=== PATIENT | female | born 1995 ===

== ENCOUNTER 2018-08-25 13:54 | Emergency (ER) | payer OTHER ==
[2018-08-25 14:22] VITALS: BP 122/75; PULSE 84; RESP 20; TEMP 98.9; O2SAT 100
[2018-08-25] MEDS ORDERED: Sodium Chloride 0.9% 1,000 ML IV ONE (15:10)
--- NOTE | 2018-08-25 15:15 | C.PDOC ---
History Of Present Illness 23-year-old female, with history of cholecystectomy and two ovarian cysts, presents to the ED for evaluation of vomiting and abdominal pain occasionally radiating to back which began today. Patient states her last menstrual period wa s 07/24 and she had an at-home test which was positive. Patient denies diarrhea, dysuria, vaginal bleeding/diarrhea. Patient is and had one stillbirth. Patient is not following up with an COMMUNITY SERVICES COORDINATOR for her current . Time Seen by Provider: 08/25/18 15:01 Chief Complaint (Nursing): Abdominal Pain History Per: Patient History/Exam Limitations: no limitations Onset/Duration Of Symptoms: Hrs Current Symptoms Are (Timing): Still Present Location Of Pain/Discomfort: Other (lower abdomen ) Radiation Of Pain To:: Back Quality Of Discomfort: "Pain" Associated Symptoms: denies: Diarrhea, Urinary Symptoms Last Menstral Period: 07/24/2018 : 4 Para: 2 Miscarriage: 1 (stillbirth ) Past Medical History Reviewed: Historical Data, Nursing Documentation, Vital Signs Vital Signs: Last Vital Signs Temp 98.9 F 08/25/18 14:17 Pulse 84 08/25/18 14:17 Resp 20 08/25/18 14:17 BP 122/75 08/25/18 14:17 Pulse Ox 100 08/25/18 14:17 - Medical History PMH: No Chronic Diseases Surgical History: Cholecystectomy Family History: States: Unknown Family Hx - Social History Hx Alcohol Use: No Hx Substance Use: No - Immunization History Hx Tetanus Toxoid Vaccination: Yes Hx Influenza Vaccination: No Hx Pneumococcal Vaccination: No Review Of Systems Gastrointestinal: Positive for: Abdominal Pain (lower ). Negative for: Diarrhea Genitourinary: Negative for: Dysuria, Vaginal Discharge, Vaginal Bleeding Physical Exam - Physical Exam Appears: Non-toxic, No Acute Distress Skin: Normal Color, Warm, Dry Head: Atraumatic, Normacephalic Eye(s): bilateral: Normal Inspection Oral Mucosa: Moist Neck: Supple Chest: Symmetrical, No Deformity, No Tenderness Cardiovascular: Rhythm Regular, No Murmur Respiratory: Normal Breath Sounds, No Rales, No Rhonchi, No Wheezing Gastrointestinal/Abdominal: Bowel Sounds (positive ), Soft, Tenderness (lower abdomen ), No Guarding, No Rebound Back: CVA Tenderness (bilaterally ) Extremity: Normal ROM, Capillary Refill (less than 2 seconds ) Neurological/Psych: Oriented x3, Normal Speech, Normal Cognition ED Course And Treatment - Laboratory Results Result Diagrams: 08/25/18 15:40 08/25/18 15:40 O2 Sat by Pulse Oximetry: 100 (on RA) Medical Decision Making Medical Decision Making: Assessment: abdominal pain and Plan: * bloodwork * urinalysis * transvaginal ultrasound * Pepcid IVP * Tylenol PO * Zofran IVP * IV Fluids * reassess and disposition Progress: Bloodwork, urinalysis, Transvaginal US ordered and reviewed. Pepvid IVP, Tylenol PO, Zofran IVP and IV Fluids given. Disposition - Disposition Disposition: HOME/ ROUTINE Disposition Time: 18:04 Condition: STABLE Additional Instructions: follow up with your ob doctor within 2 days call to make an appointment take tylenol as needed for pain take medication as prescribed for nausea your ultrasound doesn't demonstrate a at this time your hormone count is low and need repeating in 2-3 days return to ER if symptoms worsens or progress Prescriptions: Metoclopramide HCl [Reglan] 10 mg PO BID PRN #12 tablet PRN Reason: Nausea/Vomiting Instructions: Morning Sickness (DC), Tests, Acute Abdomen (Belly Pain), Adult (DC) Forms: [facility] (Pashto), General Discharge Instructions - Clinical Impression Clinical Impression: Abdominal pain, Nausea, - Scribe Statement The provider has reviewed the documentation as recorded by the Scribe (Sadie Romero) Provider Attestation: All medical record entries made by the Scribe were at my direction and personally dictated by me. I have reviewed the chart and agree that the record accurately reflects my personal performance of the history, physical exam, medical decision making, and the department course for this patient. I have also personally directed, reviewed, and agree with the discharge instructions and disposition.
[2018-08-25 15:50] LABS: BASO % 0.2 % (0.0-2.0); EOS % 0.1 % (0.0-4.0); HEMOGLOBIN 13.5 g/dL (11.0-16.0); LYMPH # 1.2 K/uL (1.0-4.3); LYMPH % 14.6 % (20.0-40.0); MEAN CELL VOLUME 87.3 fL (81.0-99.0); MEAN CORPUSCULAR HEMOGLOBIN 29.2 pg (27.0-31.0); MEAN CORPUSCULAR HGB CONC 33.4 g/dL (33.0-37.0); MEAN PLATELET VOLUME 6.9 fL (7.2-11.7); MONO # 0.4 K/uL (0.0-0.8); MONO % 5.2 % (0.0-10.0); NEUT # 6.7 K/uL (1.8-7.0); NEUT % 79.9 % (50.0-75.0); RBC 4.62 Mil/uL (3.80-5.20); RED CELL DISTRIBUTION WIDTH 14.5 % (11.5-14.5); WHITE BLOOD COUNT 8.4 K/uL (4.8-10.8)
[2018-08-25 15:57] LABS: SQUAMOUS EPITHIAL 4 /hpf (0-5); URINE BILIRUBIN NEGATIVE (NEGATIVE); URINE BLOOD NEGATIVE (NEGATIVE); URINE CLARITY Hazy (Clear); URINE COLOR Yellow (YELLOW); URINE GLUCOSE (UA) NORMAL (Normal); URINE LEUKOCYTE ESTERASE NEG Leu/uL (Negative); URINE PROTEIN NEGATIVE (NEGATIVE); URINE UROBILINOGEN NORMAL mg/dL (0.2-1.0)
[2018-08-25 16:02] LABS: ALB/GLOB RATIO 1.6 (1.0-2.1); ALBUMIN 4.6 g/dL (3.5-5.0); ALT/SGPT 27 U/L (9-52); AST/SGOT 24 U/L (14-36); BLOOD UREA NITROGEN 11 mg/dL (7-17); CALCIUM 8.8 mg/dl (8.6-10.4); GFR NON-AFRICAN AMERICAN > 60; LIPASE 88 U/L (23-300)
--- NOTE | 2018-08-25 17:41 | US ---
Date of service: 08/25/2018 HISTORY: abd. pain COMPARISON: None available. TECHNIQUE: Transabdominal and transvaginal FINDINGS: UTERUS: Measures 8.9 x 4.9 x 6.2 cm. Normal in size and appearance. No fibroid or other mass lesion seen. ENDOMETRIUM: Measures 20 mm in diameter. Mildly thickened. CERVIX: No cervical abnormality identified. RIGHT OVARY: Measures 3.7 x 1.8 x 3.4 cm. No solid mass. Normal flow. LEFT OVARY: Measures 3.2 x 1.9 x 3.0 cm. No solid mass. Normal flow. FREE FLUID: No significant free fluid noted. OTHER FINDINGS: None. IMPRESSION: Mildly thickened endometrial echo complex. No evidence of intrauterine gestation. Cannot rule out ectopic in the absence of an intrauterine gestation. Please correlate with serial beta HCG evaluation.
== END 2018-08-25 18:23 | disposition home or self-care (01) ==
LOC: C.ER 13:54
DX: O26.899 Other specified pregnancy related conditions, unspecified trimester (principal); R10.9 Unspecified abdominal pain
CPT/HCPCS: 76830; 76856; 80053; 81001; 83690; 84702; 85025; 86850; 86900; 87086; 87181; 87491; 87591; 96361; 96374; 96375; 99285; J2405; J7030

== ENCOUNTER 2018-08-27 14:36 | Emergency (ER) | payer OTHER ==
[2018-08-27 14:47] VITALS: BMI 24.5
[2018-08-27] MEDS ORDERED: Sodium Chloride 0.9% 1,000 ML IV STA (16:23)
--- NOTE | 2018-08-27 16:29 | C.PDOC ---
History Of Present Illness 23 year old female, , presents to ED with complaints of abdominal pain earlier today, associated with nausea. Patient states she visited ER for similar but worse symptoms 2 days ago. Ultrasound was done but showed nothing. Otherwise patient denies any vomiting, diarrhea, fever, vaginal bleeding, or vaginal discharge. LMP was on 07/24/18. Time Seen by Provider: 08/27/18 16:05 Chief Complaint (Nursing): Abdominal Pain History Per: Patient History/Exam Limitations: no limitations Onset/Duration Of Symptoms: Hrs Current Symptoms Are (Timing): Still Present Past Medical History Reviewed: Historical Data, Nursing Documentation, Vital Signs Vital Signs: Last Vital Signs Temp 97.6 F 08/27/18 14:47 Pulse 86 08/27/18 14:47 Resp 20 08/27/18 14:47 BP 104/69 08/27/18 14:47 Pulse Ox 100 08/27/18 14:47 Surgical History: Cholecystectomy Family History: States: No Known Family Hx - Social History Hx Alcohol Use: No Hx Substance Use: No - Immunization History Hx Tetanus Toxoid Vaccination: Yes Hx Influenza Vaccination: No Hx Pneumococcal Vaccination: No Review Of Systems Except As Marked, All Systems Reviewed And Found Negative. Constitutional: Negative for: Fever Gastrointestinal: Positive for: Nausea, Abdominal Pain. Negative for: Vomiting, Diarrhea Genitourinary: Negative for: Vaginal Discharge, Vaginal Bleeding Physical Exam - Physical Exam Additional Physical Exam Comments: Constitutional: No acute distress. Head: Normocephalic. Atraumatic. Eyes: PERRL. ENT: Moist mucous membranes. Neck: Supple. Cardiovascular: Regular rate. Radial pulse 2+ bilaterally. Chest: No tenderness. Respiratory: Clear to auscultation bilaterally. GI: Soft. Nontender. Nondistended. No tenderness at McBurney's point. Back: No CVA tenderness. Musculoskeletal: No tenderness or swelling of extremities. Skin: No rash. Neurologic: Alert, no focal deficit. ED Course And Treatment - Laboratory Results Result Diagrams: 08/27/18 16:45 08/27/18 16:45 O2 Sat by Pulse Oximetry: 100 (RA) Pulse Ox Interpretation: Normal - CT Scan/US US Transvaginal Other Rad Studies (CT/US): Read By Radiologist, Radiology Report Reviewed CT/US Interpretation: FINDINGS: ENDOMETRIUM: Thickened but homogeneous, measuring 1.8 cm. No intrauterine identified. UTERUS/CERVIX: The uterus appears within normal limits, measuring 8.5 x 4.9 x 6.8 cm. No uterine fibroid or other mass evident. RIGHT OVARY: Normal Doppler flow. Corpus luteal cyst measuring 1.9 x 1.7 x 2.0 cm. Measures 3.7 x 2.1 x 2.8 cm. LEFT OVARY: Normal Doppler flow. Corpus luteal cyst measuring 1.9 x 1.2 x 1.7 cm. Measures 3.9 x 1.6 x 3.4 cm. FREE FLUID: No free fluid. IMPRESSION: No intrauterine identified. Thickened endometrium. Medical Decision Making Medical Decision Making: Impression: Abdominal pain Plan: --Labs --IV Fluids --Tylenol --Urinalysis --US Transvaginal HCG appropriately increased but still not high enough to visualize on US. UA shows UTI. Macrobid administered and prescribed. Discharged home, f/u OBGYN, return to ED for worsening pain, fever, vomiting, or any other problem. Disposition - Disposition Disposition: HOME/ ROUTINE Disposition Time: 18:52 Condition: STABLE Prescriptions: Nitrofurantoin Macrocrystals [Macrobid] 100 mg PO BID #19 cap Instructions: Urinary Tract Infections in Children Forms: [facility] (Cambodian) - Clinical Impression Clinical Impression: UTI (urinary tract infection) - Scribe Statement The provider has reviewed the documentation as recorded by the Urban Toro Provider Attestation: All medical record entries made by the Ramboiboumar were at my direction and pe rsonally dictated by me. I have reviewed the chart and agree that the record accurately reflects my personal performance of the history, physical exam, medical decision making, and the department course for this patient. I have also personally directed, reviewed, and agree with the discharge instructions and disposition.
[2018-08-27] MEDS ORDERED: Sodium Chloride 0.9% 1,000 ML ONE (16:31)
[2018-08-27 16:49] LABS: BASO % 0.4 % (0.0-2.0); EOS % 0.3 % (0.0-4.0); HEMOGLOBIN 13.7 g/dL (11.0-16.0); LYMPH # 1.5 K/uL (1.0-4.3); LYMPH % 20.3 % (20.0-40.0); MEAN CELL VOLUME 87.6 fL (81.0-99.0); MEAN CORPUSCULAR HEMOGLOBIN 29.2 pg (27.0-31.0); MEAN CORPUSCULAR HGB CONC 33.3 g/dL (33.0-37.0); MEAN PLATELET VOLUME 7.1 fL (7.2-11.7); MONO # 0.5 K/uL (0.0-0.8); MONO % 6.7 % (0.0-10.0); NEUT # 5.4 K/uL (1.8-7.0); NEUT % 72.3 % (50.0-75.0); RBC 4.71 Mil/uL (3.80-5.20); RED CELL DISTRIBUTION WIDTH 14.7 % (11.5-14.5); WHITE BLOOD COUNT 7.5 K/uL (4.8-10.8)
[2018-08-27 17:00] LABS: SQUAMOUS EPITHIAL 12 /hpf (0-5); URINE BACTERIA MANY (<OCC); URINE BILIRUBIN NEGATIVE (NEGATIVE); URINE BLOOD NEGATIVE (NEGATIVE); URINE CLARITY Hazy (Clear); URINE COLOR Yellow (YELLOW); URINE GLUCOSE (UA) NORMAL (Normal); URINE LEUKOCYTE ESTERASE 1+ Leu/uL (Negative); URINE PROTEIN NEGATIVE (NEGATIVE); URINE UROBILINOGEN NORMAL mg/dL (0.2-1.0)
[2018-08-27 17:03] LABS: ALB/GLOB RATIO 1.4 (1.0-2.1); ALBUMIN 4.5 g/dL (3.5-5.0); ALT/SGPT 23 U/L (9-52); AST/SGOT 21 U/L (14-36); BLOOD UREA NITROGEN 10 mg/dL (7-17); CALCIUM 9.3 mg/dl (8.6-10.4); GFR NON-AFRICAN AMERICAN > 60
[2018-08-27 19:04] VITALS: BP 125/82; PULSE 59; RESP 18; TEMP 98.4
[2018-08-27 19:06] VITALS: O2SAT 100
--- NOTE | 2018-08-28 10:27 | US ---
Indication: Abdominal pain Comparison: Pelvis/transvaginal ultrasound performed 08/25/18 Technique: Real-time transabdominal pelvic ultrasound was performed. In addition a transvaginal pelvic ultrasound was necessary to better depict pelvic anatomy. Findings: Uterus measures approximately 8.5 x 4.9 x 6.8 cm. Anteverted. Cervix length measures approximately 3.6 cm. Endometrium appears top-normal measuring approximately 1.4 cm. No intrauterine gestational sac identified. The right ovary measures 3.7 x 2.1 x 2.8 cm and contains 1.9 x 1.7 x 2.0 cm complex cyst. The left ovary measures approximately 3.9 x 1.6 x 3.4 cm and contains 1.8 x 1.2 x 1.6 cm complex cyst. Blood flow is demonstrated bilaterally. Impression: No evidence of intrauterine gestational sac. If indeed the patient is based on serum beta HCG values, the sonographic findings represent either: Very early IUP; embryonic demise; ectopic gestation. Follow-up with serial quantitative serum beta HCG measurements and post OBGYN follow-up as clinically indicated, since ectopic gestation cannot be excluded based only on sonographic findings. Preliminary impression was provided by [facility].
== END 2018-08-27 19:04 | disposition home or self-care (01) ==
LOC: C.ER 14:36
DX: N39.0 Urinary tract infection, site not specified (principal)
CPT/HCPCS: 76830; 76856; 80053; 81001; 84702; 85025; 86850; 86900; 87086; 87181; 96360; 99285; J7030

== ENCOUNTER 2018-09-29 02:24 | Emergency (ER) | payer MEDICAID, OTHER ==
[2018-09-29 02:25] VITALS: BMI 24.5
[2018-09-29 02:43] VITALS: RESP 18; TEMP 98; O2SAT 98
--- NOTE | 2018-09-29 03:07 | C.PDOC ---
History Of Present Illness 23 year old female is brought to the ED by EMS requesting detox for alcohol abuse. Patient reports she drinks a bottle of Bacardy a day and has been doing it for the past 3 years. Patient denies SI/HI, hallucinations, CP, SOB, abdominal pain, injury, fall, trauma. Time Seen by Provider: 09/29/18 02:46 Chief Complaint (Nursing): Substance Abuse History Per: Patient, EMS History/Exam Limitations: intoxication Onset/Duration Of Symptoms: Days Current Symptoms Are (Timing): Still Present Suicide/Self Injury Attempted (Context): None Modifying Factor(s): Alcohol Associated Symptoms: denies: Depression, Suicidal Thoughts, Suicidal Plan Recent travel outside of the [place]: No Additional History Per: Patient Past Medical History Reviewed: Historical Data, Nursing Documentation, Vital Signs Vital Signs: Last Vital Signs Temp 98 F 09/29/18 02:28 Pulse 102 H 09/29/18 02:28 Resp 18 09/29/18 02:28 BP 120/76 09/29/18 02:28 Pulse Ox 98 09/29/18 02:28 - Medical History PMH: No Chronic Diseases Surgical History: Cholecystectomy Family History: States: Unknown Family Hx - Social History Hx Alcohol Use: Yes Hx Substance Use: No - Immunization History Hx Tetanus Toxoid Vaccination: Yes Hx Influenza Vaccination: No Hx Pneumococcal Vaccination: No Review Of Systems Constitutional: Negative for: Fever, Chills Cardiovascular: Negative for: Chest Pain Respiratory: Negative for: Cough, Shortness of Breath Gastrointestinal: Negative for: Nausea, Vomiting, Abdominal Pain Skin: Negative for: Rash Psych: Negative for: Depression, Suicidal ideation Physical Exam - Physical Exam Appears: Non-toxic, No Acute Distress Skin: Normal Color, Warm, Dry Head: Atraumatic, Normacephalic Eye(s): bilateral: Normal Inspection Neck: Normal ROM, Supple Chest: Symmetrical Cardiovascular: Rhythm Regular Respiratory: Normal Breath Sounds, No Rales, No Rhonchi, No Wheezing Gastrointestinal/Abdominal: Soft, No Tenderness, No Guarding, No Rebound Extremity: Normal ROM, No Tenderness, No Swelling Neurological/Psych: Oriented x3, Normal Speech, Normal Cognition Gait: Steady ED Course And Treatment O2 Sat by Pulse Oximetry: 98 (On RA) Pulse Ox Interpretation: Normal Progress Note: Plan: - Labs. - UA. - Crisis evaluation. Patient now states she does not want to stay for detox anymore. Patient will call relative so she can be picked up from the ED and brought home. Patient was seen by knockup worker who provided her with information for outpatient detox centers. Pt left ED with relative Disposition Counseled Patient/Family Regarding: Diagnosis, Need For Followup - Disposition Disposition: HOME/ ROUTINE Disposition Time: 03:23 Condition: STABLE Additional Instructions: Please follow up for counseling and outpatient detox Return to ER if worse Instructions: Alcohol Abuse and Alcoholism (DC) Forms: [employer] (Czech) - Clinical Impression Clinical Impression: Alcohol abuse - PA / NEUROPSYCHOLOGIST / Resident Statement MD/DO has reviewed & agrees with the documentation as recorded. - Scribe Statement The provider has reviewed the documentation as recorded by the Scribe Neto Best All medical record entries made by the Scribe were at my direction and personally dictated by me. I have reviewed the chart and agree that the record accurately reflects my personal performance of the history, physical exam, medical decision making, and the department course for this patient. I have also personally directed, reviewed, and agree with the discharge instructions and disposition.
[2018-09-29 03:53] VITALS: BP 120/72; PULSE 98
== END 2018-09-29 03:51 | disposition home or self-care (01) ==
LOC: C.ER 02:24
DX: F10.10 Alcohol abuse, uncomplicated (principal)

== ENCOUNTER 2018-10-04 13:10 | Emergency (ER) | payer SELFPAY ==
[2018-10-04 13:11] VITALS: BMI 24.5
[2018-10-04 13:22] VITALS: RESP 16; TEMP 98.1; O2SAT 98
[2018-10-04] MEDS ORDERED: Sodium Chloride 0.9% 1,000 ML IV ONE (13:32)
[2018-10-04 14:04] LABS: BASO % 0.2 % (0.0-2.0); EOS % 0.2 % (0.0-4.0); HEMOGLOBIN 14.1 g/dL (11.0-16.0); LYMPH # 1.1 K/uL (1.0-4.3); LYMPH % 19.5 % (20.0-40.0); MEAN CORPUSCULAR HEMOGLOBIN 30.7 pg (27.0-31.0); MEAN CORPUSCULAR HGB CONC 34.1 g/dL (33.0-37.0); MEAN PLATELET VOLUME 7.1 fL (7.2-11.7); MONO # 0.3 K/uL (0.0-0.8); MONO % 5.7 % (0.0-10.0); NEUT # 4.1 K/uL (1.8-7.0); NEUT % 74.4 % (50.0-75.0); RBC 4.58 Mil/uL (3.80-5.20); RED CELL DISTRIBUTION WIDTH 15.7 % (11.5-14.5); SQUAMOUS EPITHIAL 8 /hpf (0-5); URINE BILIRUBIN NEGATIVE (NEGATIVE); URINE BLOOD NEGATIVE (NEGATIVE); URINE CLARITY Clear (Clear); URINE COLOR Yellow (YELLOW); URINE GLUCOSE (UA) NORMAL (Normal); URINE LEUKOCYTE ESTERASE NEG Leu/uL (Negative); URINE PROTEIN NEGATIVE (NEGATIVE); URINE UROBILINOGEN NORMAL mg/dL (0.2-1.0); WHITE BLOOD COUNT 5.5 K/uL (4.8-10.8)
[2018-10-04 14:06] LABS: HCG,QUALITATIVE URINE POSITIVE (NEGATIVE)
[2018-10-04 14:19] LABS: ALB/GLOB RATIO 1.6 (1.0-2.1); ALBUMIN 4.8 g/dL (3.5-5.0); ALT/SGPT 34 U/L (9-52); AST/SGOT 30 U/L (14-36); BLOOD UREA NITROGEN 10 mg/dL (7-17); CALCIUM 8.8 mg/dl (8.6-10.4); GFR NON-AFRICAN AMERICAN > 60
--- NOTE | 2018-10-04 14:21 | C.PDOC ---
History Of Present Illness 23 y/o female pt presents to the ER complaining of lower abdominal cramps. Associated sx includes vaginal bleeding but currently has no active bleeding. Pt was seen in 08/2018 twice where her test was positive and her US r esult showed early . Pt denies nausea, vomiting, diarrhea, back pain, fever and chills. Time Seen by Provider: 10/04/18 13:25 Chief Complaint (Nursing): Abdominal Pain History Per: Patient History/Exam Limitations: no limitations Onset/Duration Of Symptoms: Days Current Symptoms Are (Timing): Still Present Past Medical History Reviewed: Historical Data, Nursing Documentation, Vital Signs Vital Signs: Last Vital Signs Temp 98.1 F 10/04/18 13:16 Pulse 87 10/04/18 13:16 Resp 16 10/04/18 13:16 BP 119/70 10/04/18 13:16 Pulse Ox 98 10/04/18 13:16 Surgical History: Cholecystectomy Family History: States: Unknown Family Hx - Social History Hx Alcohol Use: Yes Hx Substance Use: No - Immunization History Hx Tetanus Toxoid Vaccination: Yes Hx Influenza Vaccination: No Hx Pneumococcal Vaccination: No Review Of Systems Except As Marked, All Systems Reviewed And Found Negative. Constitutional: Negative for: Fever, Chills Gastrointestinal: Positive for: Abdominal Pain (low). Negative for: Nausea, Vomiting, Diarrhea Genitourinary: Positive for: Vaginal Bleeding (no active bleed) Musculoskeletal: Negative for: Back Pain Physical Exam - Physical Exam Appears: Non-toxic, No Acute Distress Skin: Normal Color, Warm, Dry Head: Normacephalic Eye(s): bilateral: Normal Inspection, EOMI Nose: Normal Oral Mucosa: Moist Throat: Normal Neck: Normal ROM, Supple Chest: Symmetrical Cardiovascular: Rhythm Regular Respiratory: Normal Breath Sounds Gastrointestinal/Abdominal: Soft, No Tenderness Back: No CVA Tenderness Extremity: Normal ROM (x4) Neurological/Psych: Oriented x3, Normal Speech, Normal Cognition Gait: Steady ED Course And Treatment - Laboratory Results Result Diagrams: 10/04/18 13:55 10/04/18 13:55 Lab Interpretation: Normal Urine POC: Positive O2 Sat by Pulse Oximetry: 98 (RA) Pulse Ox Interpretation: Normal - CT Scan/US No standard instances Other Rad Studies (CT/US): Read By Radiologist, Radiology Report Reviewed CT/US Interpretation: FINDINGS: UTERUS: Measures 9.1 x 4.5 x 6.3 cm. Anteverted. ENDOMETRIUM: Measures 1.5 cm in diameter. CERVIX: Cervix length measures approximately 3.0 cm. RIGHT OVARY: Measures 3.7 x 2.1 x 2.3 cm. Blood flow is demonstrated. LEFT OVARY: Measures 3.4 x 2.2 x 3.6 cm. Blood flow is demonstrated. FREE FLUID: No significant free fluid noted. OTHER FINDINGS: None. IMPRESSION: Endometrium appears top normal. Correlate with phase of menstrual cycle. No evidence of intrauterine gestational sac. No evidence of intrauterine gestational sac. If indeed the patient is based on serum beta HCG values, the sonographic findings represent either: Very early IUP; embryonic demise; ectopic gestation. Follow-up with serial quantitative serum beta HCG measurements and post OBGYN follow-up as clinically indicated, since ectopic gestation cannot be excluded based only on sonographic findings. Progress Note: On re-evaluation abdomen soft non-tender. Follow up with your FORE[facility] T[facility] PR[facility]ER for further evaluation. Return to ED if any increase symptoms Reassessment Condition: Unchanged Medical Decision Making Medical Decision Making: Impression: lower abdominal cramps Plans: -- chem labs -- blood work -- IV fluids -- HCG -- UA -- transvaginal US Disposition Counseled Patient/Family Regarding: Studies Performed, Diagnosis, Need For Followup - Disposition Referrals: [facility] [Outside] [facility] [employer] [facility] [Outside] Disposition: HOME/ ROUTINE Disposition Time: 15:45 Condition: STABLE Instructions: Threatened Miscarriage, - The First Month Forms: [employer] (Dominican) - POA Present On Arrival: None - Clinical Impression Clinical Impression: - PA / HOSPITALIST PROGRAM DIRECTOR / Resident Statement / has reviewed & agrees with the documentation as recorded. - Scribe Statement The provider has reviewed the documentation as recorded by the Urban Navarrete Do All medical record entries made by the Scribe were at my direction and personally dictated by me. I have reviewed the chart and agree that the record accurately reflects my personal performance of the history, physical exam, medical decision making, and the department course for this patient. I have also personally directed, reviewed, and agree with the discharge instructions and disposition.
--- NOTE | 2018-10-04 15:06 | US ---
Date of service: 10/04/2018 HISTORY: bleeding COMPARISON: Pelvic ultrasound performed 08/27/18 TECHNIQUE: Real-time transabdominal pelvic ultrasound was performed. In addition a transvaginal pelvic ultrasound was necessary to better depict pelvic anatomy. FINDINGS: UTERUS: Measures 9.1 x 4.5 x 6.3 cm. Anteverted. ENDOMETRIUM: Measures 1.5 cm in diameter. CERVIX: Cervix length measures approximately 3.0 cm. RIGHT OVARY: Measures 3.7 x 2.1 x 2.3 cm. Blood flow is demonstrated. LEFT OVARY: Measures 3.4 x 2.2 x 3.6 cm. Blood flow is demonstrated. FREE FLUID: No significant free fluid noted. OTHER FINDINGS: None. IMPRESSION: Endometrium appears top normal. Correlate with phase of menstrual cycle. No evidence of intrauterine gestational sac. No evidence of intrauterine gestational sac. If indeed the patient is based on serum beta HCG values, the sonographic findings represent either: Very early IUP; embryonic demise; ectopic gestation. Follow-up with serial quantitative serum beta HCG measurements and post OBGYN follow-up as clinically indicated, since ectopic gestation cannot be excluded based only on sonographic findings.
[2018-10-04 15:46] VITALS: BP 111/68; PULSE 74
== END 2018-10-04 15:45 | disposition home or self-care (01) ==
LOC: C.ER 13:10
DX: O26.891 Other specified pregnancy related conditions, first trimester (principal); R10.30 Lower abdominal pain, unspecified; Z3A.00 Weeks of gestation of pregnancy not specified